=== PATIENT | male | born 1930 | race Caucasian/White ===

== ENCOUNTER 2016-12-12 13:41 | Inpatient (IN) | payer OTHER ==
--- NOTE | 2016-12-12 14:44 | DR.GENAD ---
HPI - PCP Primary Care Physician: NFD - Complaint/Symptoms Chief Complaint Doctors Comments: Patient has been without medical care for extended period of times according the neighbors. He lives alone. Chief Complaint:: PATIENT FELL DURING THE NIGHT AND HAS BRUISING AND SKIN TEARS TO HIS BACK. PATIENT ABDOMEN IS DISTENDED AND PAINFUL. - Source History Provided: Patient, Friend - Mode of Arrival Mode of Arrival: Wheelchair - Timing Onset of Chief Complaint: 12/11/16 PMH - PMH Past Medical History: No Past Surgical History: No Surgical History: Unknown - Family History History of Family Medical Conditions: No - Social History Does patient currently use any type of tobacco product: Yes Have you used tobacco products in the last 12 months: Yes Type of Tobacco Use: Cigarettes Does any household member use tobacco: No Alcohol Use: None Do you use any recreational Drugs:: No Lives With: Family Lives Where: Home - infectious screening In the last 2 months have you had wt loss of >10#?: NO Have you had fever, night sweats or hemotysis?: No Have you traveled outside the country in the last 6 months?: No Isolation: Standard ROS - Review of Systems Eyes: No Symptoms Reported ENTM: No Symptoms Reported Respiratoy: No Symptoms Reported Cardiovascular: No Symptoms Reported Gastrointestinal/Abdominal: No Symptoms Reported Genitourinary: No Symptoms Reported Neurological: No Symptoms Reported Musculoskeletal: Rib(s), Back, Elbow (A) Integumentary: No Symptoms Reported Hematologic/Lymphatic: No Symptoms Reported Endocrine: No Symptoms Reported Psychiatric: No Symptoms Reported All Other Systems: Reviewed and Negative PE - Vital Signs Vitals: Temperature 98.2 F Pulse Rate 69 Respiratory Rate 20 Blood Pressure 91/62 O2 Sat by Pulse Oximetry 97 - General Limitations: No Limitations General Appearance: Alert, In No Apparent Distress - Head Head Exam: Normal Inspection, Atraumatic - Eyes Eye exam: Normal Appearance, PERRL, EOMI - ENT ENT Exam: Normal Exam External Ear Exam: Normal External Inspection TM/Canal Exam: Bilateral Normal Nose Exam: Normal Nose Exam Mouth Exam: Normal Inspection Throat Exam: Normal Inspection - Neck Neck Exam: Normal Inspection - Chest Chest Inspection: Normal Inspection - Respiratory Respiratory Exam: Normal Lung Sounds Bilat Respiratory Exam: Bilateral Clear to Auscultation - Cardiovascular Cardiovascular Exam: Regular Rate - Abdominal Exam Abdominal Exam: Normal Inspection Abdominal Tenderness: Diffuse - Extremities Extremities Exam: Other (multiple abrasion lower extremities) - Back Back Exam: Normal Inspection - Neurologic Neurological Exam: Alert, Oriented X3, CN II-XII Intact - Skin Skin Exam: Warm, Dry Course - Reevaluation 1st: Improved - Consultation Called: 17:00 (Admit for further evaluation and treatment) ROR - Labs Reviewed Result Diagrams: 12/12/16 14:45 12/12/16 14:45 Laboratory: WBC 6.5 X10^3/uL (3.6-10.0) 12/12/16 14:45 RBC 3.83 X10^6/uL (4.7-6.0) L 12/12/16 14:45 Hgb 11.0 g/dL (13.5-18.0) L 12/12/16 14:45 Hct 33.5 % (42.0-54.0) L 12/12/16 14:45 MCV 87.4 fL (80.0-100.0) 12/12/16 14:45 MCH 28.7 pg (27.0-34.0) 12/12/16 14:45 MCHC 32.8 g/dL (33.0-35.0) L 12/12/16 14:45 RDW 16.4 % (11.6-16.5) 12/12/16 14:45 Plt Count 160 X10^3/uL (150.0-450.0) 12/12/16 14:45 Plt Count Comment Adequate (ADEQUATE) 12/12/16 14:45 MPV 8.7 fL (7.4-11.0) 12/12/16 14:45 Neut % 92.8 % (42.0-75.0) H 12/12/16 14:45 Lymph % 3.3 % (21.0-51.0) L 12/12/16 14:45 [place] % 3.7 % (0.0-13.0) 12/12/16 14:45 Eos % 0.0 % (0.9-2.9) L 12/12/16 14:45 Baso % 0.2 % (0.2-1.0) 12/12/16 14:45 Neut # 6.1 x10^3/uL (2.2-4.8) H 12/12/16 14:45 Lymph # 0.2 X10^3/uL (1.3-2.9) L 12/12/16 14:45 [place] # 0.2 x10^3/uL (0.3-0.8) L 12/12/16 14:45 Eos # 0.0 x10^3/uL (0.0-0.2) 12/12/16 14:45 Baso # 0.0 X10^3/uL (0.0-0.1) 12/12/16 14:45 Absolute Nucleated RBC 0.0 /100WBC 12/12/16 14:45 Total Counted 100 12/12/16 14:45 Neutrophils % (Manual) 93 % (39-76) H 12/12/16 14:45 Band Neutrophils % 4 % (0-10) 12/12/16 14:45 Lymphocytes % (Manual) 2 % (13-43) L 12/12/16 14:45 Monocytes % (Manual) 1 % (4-9) L 12/12/16 14:45 Plt Morphology Comment Normal (NORMAL) 12/12/16 14:45 RBC Morphology Normal (NORMAL) 12/12/16 14:45 INR Target Range - 12/12/16 14:45 INR 1.23 (0.8-1.3) 12/12/16 14:45 Sodium 135 mmol/L (136-145) L 12/12/16 14:45 Corrected Sodium TNP 12/12/16 14:45 Potassium 5.2 mmol/L (3.5-5.1) H 12/12/16 14:45 Chloride 100 mmol/L (98-107) 12/12/16 14:45 Carbon Dioxide 21.1 mmol/L (21-32) 12/12/16 14:45 BUN 91 mg/dL (7-18) H 12/12/16 14:45 Creatinine 4.86 mg/dL (0.70-1.30) H 12/12/16 14:45 Est GFR (MDRD) Af Amer 15 (>60) L 12/12/16 14:45 Est GFR (MDRD) Non-Af 12 (>60) L 12/12/16 14:45 Glucose 79 mg/dL (65-99) 12/12/16 14:45 Calcium 8.2 mg/dL (8.5-10.1) L 12/12/16 14:45 Corrected Calcium 9.5 mg/dL (8.5-10.1) 12/12/16 14:45 Total Bilirubin 0.90 mg/dL (0.2-1.0) 12/12/16 14:45 AST 33 Units/L (15-37) 12/12/16 14:45 ALT 31 Units/L (12-78) 12/12/16 14:45 Alkaline Phosphatase 75 Units/L (46-116) 12/12/16 14:45 Creatine Kinase 314 Units/L (39-308) H 12/12/16 14:45 CK-MB (CK-2) 14.5 ng/mL (0-4.0) H* 12/12/16 14:45 CK/CKMB % Calc 4.6 % (<4) 12/12/16 14:45 Troponin I 0.22 ng/mL (0-1.5) 12/12/16 14:45 C-Reactive Protein 46.60 mg/L (0-3.0) H 12/12/16 14:45 Total Protein 6.0 g/dL (6.4-8.2) L 12/12/16 14:45 Albumin 2.4 g/dL (3.4-5.0) L 12/12/16 14:45 Globulin 3.6 g/dL (2.5-4.5) 12/12/16 14:45 Albumin/Globulin Ratio 0.7 Ratio (1.1-2.1) L 12/12/16 14:45 - XRAY XRAY Interpreted by: Radiologist (Shoulder (L) Marked superior humeral migration consistent with chronic rotator cuff disease;Right shoulder: Superior humeral migrartion c/w chronic rotator cuff disease, Marked AC joint degenerative joint disease; Left Rib series: intact; CT Abd/Pel w/o con.: Massive dilation of the urinary bladder and chronic, severe bilateral hydronephrosis/hydroureter likely secondary to chronic bladder outlet obstruction from enlarged prostate gland. Large right and small left plleural effusion.) - Diagnosis Discharge Problem: Bladder outlet obstruction, Prostate hypertrophy - Discharge Plan Condition: Stable - Follow ups/Referrals Follow ups/Referrals: NFD,None [Primary Care Provider] - 3 days - Instructions
[2016-12-12 15:00] LABS: BASOPHILS % (AUTO) 0.2 % (0.2-1.0); HEMATOCRIT 33.5 % (42.0-54.0); LYMPHOCYTES # (AUTO) 0.2 X10^3/uL (1.3-2.9); LYMPHOCYTES % (AUTO) 3.3 % (21.0-51.0); MEAN CORPUSCULAR HEMOGLOBIN 28.7 pg (27.0-34.0); MEAN CORPUSCULAR HGB CONC 32.8 g/dL (33.0-35.0); MEAN CORPUSCULAR VOLUME 87.4 fL (80.0-100.0); MEAN PLATELET VOLUME 8.7 fL (7.4-11.0); MONOCYTES # (AUTO) 0.2 x10^3/uL (0.3-0.8); MONOCYTES % (AUTO) 3.7 % (0.0-13.0); NEUTROPHILS # (AUTO) 6.1 x10^3/uL (2.2-4.8); NEUTROPHILS % (AUTO) 92.8 % (42.0-75.0); PLATELET COUNT 160 X10^3/uL (150.0-450.0); RED BLOOD COUNT 3.83 X10^6/uL (4.7-6.0); RED CELL DISTRIBUTION WIDTH 16.4 % (11.6-16.5); WHITE BLOOD COUNT 6.5 X10^3/uL (3.6-10.0)
[2016-12-12 15:16] LABS: BLOOD UREA NITROGEN 91 mg/dL (7-18); CALCIUM 8.2 mg/dL (8.5-10.1); CARBON DIOXIDE 21.1 mmol/L (21-32); CHLORIDE 100 mmol/L (98-107); CREATININE 4.86 mg/dL (0.70-1.30); GLUCOSE 79 mg/dL (65-99); SODIUM 135 mmol/L (136-145); TROPONIN I 0.22 ng/mL (0-1.5); eGFR BLACK RACES 15 (>60); eGFR NON BLACK RACES 12 (>60)
[2016-12-12 15:22] LABS: BAND NEUTROPHILS % 4 % (0-10); PLATELET MORPHOLOGY COMMENT NORMAL (NORMAL)
--- NOTE | 2016-12-12 15:34 | RAD ---
HISTORY: Injury, fall, pain and decreased range of motion Study: Right shoulder to view Comparison: None Findings: The visualize clavicle is intact. Marked AC joint degenerative joint disease is present. The right u pper ribs and scapula are intact as is the proximal humerus. There is marked superior humeral migrat ion consistent with chronic rotator cuff disease. IMPRESSION: No definite acute traumatic abnormality Superior humeral migration consistent with chronic rotator cuff disease Marked AC joint degenerative joint disease Reported By:
--- NOTE | 2016-12-12 15:36 | RAD ---
HISTORY: Injury, fall, left shoulder pain and decreased range of motion Study: Left shoulder two view Comparison: None Findings: The clavicle and AC joints are intact. The scapula is intact as are the left upper ribs. The proxima l humerus is intact. There is marked superior humeral migration consistent with chronic rotator cuff disease. IMPRESSION: Marked superior humeral migration consistent with chronic rotator cuff disease Reported By:
[2016-12-12 15:38] LABS: ALANINE AMINOTRANSFERASE 31 Units/L (12-78); ALBUMIN 2.4 g/dL (3.4-5.0); ALKALINE PHOSPHATASE 75 Units/L (46-116); ASPARTATE AMINO TRANSFERASE 33 Units/L (15-37); CKMB % 4.6 % (<4); COR CA(FOR HYPOALB) 9.5 mg/dL (8.5-10.1); CREATINE KINASE 314 Units/L (39-308)
[2016-12-12 15:40] LABS: CREATINE KINASE MB 14.5 ng/mL (0-4.0)
--- NOTE | 2016-12-12 15:44 | RAD ---
HISTORY: Injury, fall, left posterior rib pain and bruising Study: Left ribs four view Comparison: None Findings: Examination of the left ribs demonstrated no definite evidence for fracture, lytic, or blastic lesio n. No pneumothorax or pleural effusion is identified. IMPRESSION: intact left ribs Reported By:
[2016-12-12] MEDS ORDERED: LR 1000 ML IV 1,000 ML IV SCH (16:00)
[2016-12-12] MEDS ORDERED: MORPHINE SULFATE INJ 4 MG IVP ONE (16:12)
--- NOTE | 2016-12-12 16:13 | CT ---
CT OF THE CHEST, ABDOMEN AND PELVIS WITHOUT IV CONTRAST HISTORY: Shortness of breath and abdominal distention Comparison: None Technique: Non contrast axial images of the chest, abdomen, and pelvis were obtained from the thorac ic inlet to the pubic symphysis. Dose reduction techniques including Automated Exposure Control (AEC ) and adjustment of mA and kV were utlized. Findings: The sensitivity for focal lesion detection within the solid abdominal viscera, and medias tinum is diminished without the use of IV contrast. CT chest without contrast: The cardiomegaly. No pericardial effusion. Three-vessel and valvular calc ification. No suspicious mediastinal or axillary lymph nodes. No focal consolidations, pleural effusions or pneumothorax. Airways are patent. No suspicious pulmon abimbola nodules or masses. CT abdomen and pelvis without contrast : Liver and spleen are normal in size and contour. No focal l esions. No ductal dilitation. Gallbladder is present. No calcified gallstones or gallbladder wall th ickening. The pancreas is unremarkable. Adrenal glands are normal. Kidneys are without hydronephrosi s or nephrolithiasis. No bowel obstruction or inflammation. No abnormal appearing mesenteric or retroperitoneal lymph nod es. No free fluid or fluid collections. The bladder is massively dilated. Prostate measures 5.5 cm. Small amount of free fluid in the pelvis . No aggressive osseous lesions. IMPRESSION: 1. Massive dilation of the urinary bladder and chronic, severe bilateral hydronephrosis/hydroureter likely secondary to chronic bladder outlet obstruction from enlarged prostate gland. 2. Large right and small left pleural effusions. 3. Severe Coronary and valvular calcification. 4. Severe emphysema. Reported By:
[2016-12-12] MEDS ORDERED: MORPHINE SULFATE INJ 4 MG ONE (16:14)
[2016-12-12 17:24] LABS: BILIRUBIN,URINE NEGATIVE (NEGATIVE); BLOOD/HEMOGLOBIN,URINE 5+ (NEGATIVE); GLUCOSE, URINE NEGATIVE (NEGATIVE); KETONES,URINE NEGATIVE (NEGATIVE); LEUKOCYTE ESTERASE ,URINE 3+ (NEGATIVE); NITRITES,URINE NEGATIVE (NEGATIVE); PH,URINE 6.5 (5.0 - 8.0); PROTEIN,URINE 2+ (NEGATIVE); UROBILINOGEN,URINE NORMAL (NORMAL)
[2016-12-12] MEDS ORDERED: ZOFRAN INJ 4 MG VIAL IVP PRN (17:35)
[2016-12-12 17:40] LABS: AMORPHOUS SEDIMENT,UR TRACE /HPF (NEGATIVE); APPEARANCE,URINE CLOUDY (CLEAR); BACTERIA,URINE 2+ /HPF (NEGATIVE); COLOR,URINE DARK YELLOW (YELLOW); RBC,URINE TNTC /HPF (NEGATIVE); SQUAMOUS EPITHELIAL CELL,UR RARE /HPF (NEGATIVE)
[2016-12-12] MEDS ORDERED: GEODON INJ IM ONE ×2 (18:26→18:27)
[2016-12-12] MEDS ORDERED: CIPRO IV 400 MG PREMIX* 400 MG/200 ML IV.SOLN. IV SCH (19:00)
[2016-12-12] MEDS: MORPHINE SULFATE INJ 4 MG IVP PRN (19:30)
[2016-12-12] MEDS: NS 1000 ML 1,000 ML IV SCH (21:37)
[2016-12-12] MEDS: ROCEPHIN VIAL 1 GM 1 GM in NS 50 ML IV + SPIKE MINIBAG* 50 ML IV SCH (21:37)
[2016-12-13] MEDS: DUONEB 0.5 MG/3 MG NEB SCH ×5 (01:20→23:05)
[2016-12-13] MEDS: MORPHINE SULFATE INJ 4 MG IVP PRN ×4 (06:04→23:43)
--- NOTE | 2016-12-13 06:16 | RAD ---
HISTORY: Follow up pleural effusion Study: Chest one view Comparison: December 12, 2016 plain film and chest CT Findings: The heart is enlarged. No definite congestive heart failure is noted. The lungs are well inflated. I nterstitial lung changes are present bilaterally. No acute alveolar infiltrates are identified. Hazi ness in the right reynold thorax is due to the patient's right pleural effusion which appears increased since prior examination. The patient's left pleural effusion is unchanged. The bony thorax is unrem arkable. IMPRESSION: Cardiomegaly without congestive heart failure Increasing right pleural effusion No change left pleural effusion Interstitial lung changes Reported By:
[2016-12-13] MEDS: NS 1000 ML 1,000 ML IV SCH ×2 (06:41→15:54)
[2016-12-13 06:53] LABS: ALANINE AMINOTRANSFERASE 29 Units/L (12-78); ALBUMIN 2.2 g/dL (3.4-5.0); ALKALINE PHOSPHATASE 68 Units/L (46-116); ASPARTATE AMINO TRANSFERASE 34 Units/L (15-37); BLOOD UREA NITROGEN 87 mg/dL (7-18); CALCIUM 8.2 mg/dL (8.5-10.1); CARBON DIOXIDE 21.8 mmol/L (21-32); CHLORIDE 104 mmol/L (98-107); COR CA(FOR HYPOALB) 9.6 mg/dL (8.5-10.1); CREATININE 4.27 mg/dL (0.70-1.30); GLUCOSE 60 mg/dL (65-99); SODIUM 138 mmol/L (136-145); TOTAL PROTEIN 5.7 g/dL (6.4-8.2); eGFR BLACK RACES 17 (>60); eGFR NON BLACK RACES 14 (>60)
[2016-12-13 07:09] LABS: BASOPHILS % (AUTO) 0 % (0.2-1.0); HEMATOCRIT 32.3 % (42.0-54.0); HEMOGLOBIN 10.5 g/dL (13.5-18.0); LYMPHOCYTES # (AUTO) 0.3 X10^3/uL (1.3-2.9); LYMPHOCYTES % (AUTO) 4.5 % (21.0-51.0); MEAN CORPUSCULAR HEMOGLOBIN 28.3 pg (27.0-34.0); MEAN CORPUSCULAR HGB CONC 32.6 g/dL (33.0-35.0); MEAN CORPUSCULAR VOLUME 86.9 fL (80.0-100.0); MEAN PLATELET VOLUME 9.4 fL (7.4-11.0); MONOCYTES # (AUTO) 0.2 x10^3/uL (0.3-0.8); MONOCYTES % (AUTO) 2.8 % (0.0-13.0); NEUTROPHILS # (AUTO) 7.1 x10^3/uL (2.2-4.8); NEUTROPHILS % (AUTO) 92.7 % (42.0-75.0); PLATELET COUNT 120 X10^3/uL (150.0-450.0); RED BLOOD COUNT 3.71 X10^6/uL (4.7-6.0); RED CELL DISTRIBUTION WIDTH 16.4 % (11.6-16.5); WHITE BLOOD COUNT 7.7 X10^3/uL (3.6-10.0)
[2016-12-13 08:08] LABS: BAND NEUTROPHILS % 14 % (0-10)
[2016-12-13 08:09] LABS: PLATELET MORPHOLOGY COMMENT NORMAL (NORMAL)
[2016-12-13] MEDS: CIPRO IV 200 MG PREMIX* 200 MG/100 ML BAG IV SCH ×2 (08:58→20:46)
[2016-12-13] MEDS: ROCEPHIN VIAL 1 GM 1 GM in NS 50 ML IV + SPIKE MINIBAG* 50 ML IV SCH (08:59)
--- NOTE | 2016-12-13 11:08 | CT ---
HISTORY: Fall, head injury Study: CT brain without contrast Comparison: None Technique: Multiple axial images of the brain were obtained from the skull base to the vertex without administr ation of IV contrast. Coronal and sagittal reformats were performed. Dose reduction proceed were use d with MA/kv adjusted for body size. Findings: No acute intraparenchymal hemorrhage or mass can be identified. No extra-axial fluid collections ar e seen. No alteration in the attenuation of the brain parenchyma can be identified to suggest acute or subacute ischemic change. the ventricles, cortical sulci, and other CSF spaces are enlarged con sistent with generalized atrophy. There is decreased attenuation in the periventricular white matter suggestive of small vessel vascular disease. The extracranial structures are grossly unremarkable. IMPRESSION: 1. No acute intracranial process can be identified. 2. Atrophy 3. Small-vessel disease Reported By:
[2016-12-13] MEDS ORDERED: HALDOL INJ IM ONE ×2 (15:38→16:36)
[2016-12-14] MEDS: NS 1000 ML 1,000 ML IV SCH ×2 (02:00→22:13)
[2016-12-14] MEDS: HALDOL INJ IM PRN ×3 (02:14→22:09)
[2016-12-14] MEDS: MORPHINE SULFATE INJ 4 MG IVP PRN ×4 (03:40→20:51)
[2016-12-14] MEDS: DILAUDID INJ IVP PRN ×3 (05:00→17:55)
[2016-12-14] MEDS: DUONEB 0.5 MG/3 MG NEB SCH ×4 (05:57→23:21)
[2016-12-14] MEDS: CIPRO IV 200 MG PREMIX* 200 MG/100 ML BAG IV SCH ×2 (09:13→20:48)
[2016-12-14] MEDS: ROCEPHIN VIAL 1 GM 1 GM in NS 50 ML IV + SPIKE MINIBAG* 50 ML IV SCH (09:13)
[2016-12-14 09:25] VITALS: BMI 18.3
[2016-12-14 13:55] LABS: BASOPHILS % (AUTO) 0.1 % (0.2-1.0); HEMATOCRIT 31.6 % (42.0-54.0); HEMOGLOBIN 10.2 g/dL (13.5-18.0); LYMPHOCYTES # (AUTO) 0.2 X10^3/uL (1.3-2.9); LYMPHOCYTES % (AUTO) 2.8 % (21.0-51.0); MEAN CORPUSCULAR HEMOGLOBIN 28.5 pg (27.0-34.0); MEAN CORPUSCULAR HGB CONC 32.4 g/dL (33.0-35.0); MEAN CORPUSCULAR VOLUME 87.8 fL (80.0-100.0); MEAN PLATELET VOLUME 9.3 fL (7.4-11.0); MONOCYTES # (AUTO) 0.3 x10^3/uL (0.3-0.8); MONOCYTES % (AUTO) 3.7 % (0.0-13.0); NEUTROPHILS # (AUTO) 7.1 x10^3/uL (2.2-4.8); NEUTROPHILS % (AUTO) 93.4 % (42.0-75.0); PLATELET COUNT 134 X10^3/uL (150.0-450.0); RED CELL DISTRIBUTION WIDTH 16.7 % (11.6-16.5); WHITE BLOOD COUNT 7.6 X10^3/uL (3.6-10.0)
[2016-12-14 13:57] LABS: AMMONIA 15 umol/L (11-32)
[2016-12-14 14:02] LABS: ALANINE AMINOTRANSFERASE 29 Units/L (12-78); ALKALINE PHOSPHATASE 71 Units/L (46-116); ASPARTATE AMINO TRANSFERASE 44 Units/L (15-37); BLOOD UREA NITROGEN 78 mg/dL (7-18); CALCIUM 8.5 mg/dL (8.5-10.1); CARBON DIOXIDE 19.9 mmol/L (21-32); CHLORIDE 110 mmol/L (98-107); COR CA(FOR HYPOALB) 10.1 mg/dL (8.5-10.1); CREATININE 3.24 mg/dL (0.70-1.30); GLUCOSE 65 mg/dL (65-99); SODIUM 144 mmol/L (136-145); TOTAL PROTEIN 5.9 g/dL (6.4-8.2); eGFR BLACK RACES 23 (>60); eGFR NON BLACK RACES 19 (>60)
[2016-12-14 14:21] LABS: BAND NEUTROPHILS % 2 % (0-10); PLATELET MORPHOLOGY COMMENT NORMAL (NORMAL)
[2016-12-15] MEDS: DILAUDID INJ IVP PRN ×2 (00:21→15:44)
[2016-12-15] MEDS: MORPHINE SULFATE INJ 4 MG IVP PRN ×3 (02:23→12:22)
[2016-12-15] MEDS: HALDOL INJ IM PRN ×3 (03:52→21:10)
[2016-12-15] MEDS: DUONEB 0.5 MG/3 MG NEB SCH ×4 (05:54→18:17)
[2016-12-15 06:29] LABS: BASOPHILS % (AUTO) 0.3 % (0.2-1.0); LYMPHOCYTES # (AUTO) 0.2 X10^3/uL (1.3-2.9); LYMPHOCYTES % (AUTO) 2.7 % (21.0-51.0); MEAN CORPUSCULAR HEMOGLOBIN 28.5 pg (27.0-34.0); MEAN CORPUSCULAR HGB CONC 32.2 g/dL (33.0-35.0); MEAN CORPUSCULAR VOLUME 88.4 fL (80.0-100.0); MONOCYTES # (AUTO) 0.4 x10^3/uL (0.3-0.8); MONOCYTES % (AUTO) 4.4 % (0.0-13.0); NEUTROPHILS # (AUTO) 7.5 x10^3/uL (2.2-4.8); NEUTROPHILS % (AUTO) 92.6 % (42.0-75.0); PLATELET COUNT 132 X10^3/uL (150.0-450.0); RED BLOOD COUNT 3.85 X10^6/uL (4.7-6.0); RED CELL DISTRIBUTION WIDTH 16.8 % (11.6-16.5); WHITE BLOOD COUNT 8.1 X10^3/uL (3.6-10.0)
[2016-12-15 06:37] LABS: ALANINE AMINOTRANSFERASE 31 Units/L (12-78); ALBUMIN 2.1 g/dL (3.4-5.0); ALKALINE PHOSPHATASE 74 Units/L (46-116); ASPARTATE AMINO TRANSFERASE 61 Units/L (15-37); BLOOD UREA NITROGEN 86 mg/dL (7-18); CALCIUM 8.7 mg/dL (8.5-10.1); CARBON DIOXIDE 18.6 mmol/L (21-32); CHLORIDE 112 mmol/L (98-107); COR CA(FOR HYPOALB) 10.2 mg/dL (8.5-10.1); CREATININE 3.24 mg/dL (0.70-1.30); GLUCOSE 67 mg/dL (65-99); SODIUM 148 mmol/L (136-145); eGFR BLACK RACES 23 (>60); eGFR NON BLACK RACES 19 (>60)
[2016-12-15 07:44] LABS: BAND NEUTROPHILS % 3 % (0-10)
[2016-12-15 07:45] LABS: ANISOCYTOSIS TRACE; PLATELET MORPHOLOGY COMMENT NORMAL (NORMAL)
[2016-12-15] MEDS: ROCEPHIN VIAL 1 GM 1 GM in NS 50 ML IV + SPIKE MINIBAG* 50 ML IV SCH (10:15)
[2016-12-15] MEDS: CIPRO IV 200 MG PREMIX* 200 MG/100 ML BAG IV SCH ×2 (10:15→21:09)
[2016-12-15] MEDS ORDERED: BENADRYL INJ 50 MG VIAL IVP ONE (14:23)
--- NOTE | 2016-12-15 16:13 | RAD ---
HISTORY: Shortness of breath Study: Single view of the chest. Comparison: None. Findings: 12/13/2016 cardiomegaly. Essentially unchanged appearance of diffuse interstitial and early alveolar airspace opacities. No dense consolidations. Probable trace right pleural effusion. Osseous structur es demonstrate no acute abnormality. IMPRESSION: 1. No change in appearance of bilateral interstitial and early alveolar opacities with possible rig ht pleural effusion and cardiomegaly. Findings would most consistent with pulmonary edema although s hould be stated that multifocal infection or ARDS could have a similar appearance. Reported By:
[2016-12-15] MEDS ORDERED: LASIX IVP ONE (17:08)
[2016-12-15] MEDS ORDERED: NS 1/2 1000 ML IV 1,000 ML IV ONE (17:16)
[2016-12-15] MEDS: NS 1/2 1000 ML IV 1,000 ML IV SCH (17:22)
[2016-12-15] MEDS ORDERED: PHARMACY CONSULT - DOSE _____ XX SCH (18:00)
[2016-12-16] MEDS: DILAUDID INJ IVP PRN ×2 (00:57→23:36)
[2016-12-16] MEDS: DUONEB 0.5 MG/3 MG NEB SCH ×4 (01:29→16:18)
[2016-12-16 05:23] LABS: BASOPHILS % (AUTO) 0.2 % (0.2-1.0); HEMATOCRIT 35.1 % (42.0-54.0); HEMOGLOBIN 11.3 g/dL (13.5-18.0); LYMPHOCYTES # (AUTO) 0.3 X10^3/uL (1.3-2.9); LYMPHOCYTES % (AUTO) 3.4 % (21.0-51.0); MEAN CORPUSCULAR HEMOGLOBIN 28.3 pg (27.0-34.0); MEAN CORPUSCULAR HGB CONC 32.3 g/dL (33.0-35.0); MEAN CORPUSCULAR VOLUME 87.4 fL (80.0-100.0); MEAN PLATELET VOLUME 9.1 fL (7.4-11.0); MONOCYTES # (AUTO) 0.3 x10^3/uL (0.3-0.8); NEUTROPHILS % (AUTO) 92.4 % (42.0-75.0); PLATELET COUNT 124 X10^3/uL (150.0-450.0); RED BLOOD COUNT 4.01 X10^6/uL (4.7-6.0); RED CELL DISTRIBUTION WIDTH 16.4 % (11.6-16.5); WHITE BLOOD COUNT 7.6 X10^3/uL (3.6-10.0)
[2016-12-16] MEDS ORDERED: NS 1/2 1000 ML IV 1,000 ML IV ONE (05:23)
[2016-12-16] MEDS: MORPHINE SULFATE INJ 4 MG IVP PRN ×3 (05:30→21:21)
[2016-12-16] MEDS: NS 1/2 1000 ML IV 1,000 ML IV SCH (05:30)
[2016-12-16 05:32] LABS: ALANINE AMINOTRANSFERASE 40 Units/L (12-78); ALBUMIN 2.1 g/dL (3.4-5.0); ALKALINE PHOSPHATASE 69 Units/L (46-116); ASPARTATE AMINO TRANSFERASE 81 Units/L (15-37); BLOOD UREA NITROGEN 91 mg/dL (7-18); CALCIUM 8.6 mg/dL (8.5-10.1); CARBON DIOXIDE 18.9 mmol/L (21-32); CHLORIDE 114 mmol/L (98-107); COR CA(FOR HYPOALB) 10.1 mg/dL (8.5-10.1); CREATININE 3.15 mg/dL (0.70-1.30); GLUCOSE 82 mg/dL (65-99); eGFR BLACK RACES 24 (>60); eGFR NON BLACK RACES 20 (>60)
[2016-12-16 05:55] LABS: SODIUM 151 mmol/L (136-145)
[2016-12-16 06:45] LABS: PLATELET MORPHOLOGY COMMENT NORMAL (NORMAL)
[2016-12-16] MEDS: ROCEPHIN VIAL 1 GM 1 GM in NS 50 ML IV + SPIKE MINIBAG* 50 ML IV SCH (08:26)
[2016-12-16] MEDS: CIPRO IV 200 MG PREMIX* 200 MG/100 ML BAG IV SCH ×2 (08:26→21:28)
[2016-12-16] MEDS ORDERED: HumuLIN R SUBCUT PRN (09:04)
[2016-12-16] MEDS: CLINIMIX 4.25 %/10 % 1,000 ML with MVI INJ (ADULT) 10 ML, TRACE ELEMENTS INJ 10 ML, POT... IV SCH ×4 (11:04)
--- NOTE | 2016-12-16 11:21 | RAD ---
History: Bilateral Rales Study: AP chest Comparison: Yesterday Findings: There is cardiomegaly with severe pulmonary edema and a small pleural effusion bilaterally and vascular congestion. Impression: Congestive heart failure, worse than on December 13 Reported By:
--- NOTE | 2016-12-16 14:09 | PCM.PROG ---
Progress Note - Progress Note for Day of Date: 12/16/16 - Subjective Subjective: 86 WM WITH AMS, OPENS EYE TO TACTILE SITMULI, NO VERBAL RESPONES, CAREGIVER, POWER OF ATTOURNEY IN ROOM WITH PT. PT HAS DNR SIGNED. DISCUSSED HOSPICE WITH CAREGIVER. PLAN TO CONTINUE CURRENT MEDS AND CONSULT [facility]. - Past Medical Family Social History Past Med/Fam/Surg Hx: No changes since H&P Allergies: Allergies No Known Drug Allergy Allergy (Verified 12/12/16 13:42) - Review of Systems ROS: No change since H&P - Vital Signs and I&O's Vital Signs: Temperature 98 F Pulse Rate [Right Brachial] 84 Pulse Rate [Left Brachial] 71 Pulse Rate 86 Respiratory Rate 24 Blood Pressure [Right Arm] 116/56 Blood Pressure [Right Calf] 133/69 O2 Sat by Pulse Oximetry 86 Intake and Output: Intake & Output 12/14/16 12/15/16 12/16/16 12/17/16 11:59 11:59 11:59 11:59 Intake Total 9178 783 2392 Output Total 1775 1000 880 Balance -471 -40 190 - Physical Exam Oriented: Unable to test Eyes: Normal Ear: Normal Throat: Dry Respiratory: Diminished Cardiovascular: Tachycardia : Other (incontinent) Auscultation: Bowel Sounds: Normal Palpation: Normal Tenderness: Other (UNABLE TO TEST) Skin: Decreased Turgur, Ecchymosis Musculoskeletal: Motor Deficit (DIFFUSE WEAKNESS) Psychiatric: Other (unresponsive) Speech Pattern: Unclear, Aphasic - Laboratory and Diagnostics Result Diagrams: 12/16/16 03:41 12/16/16 03:41 Labs: 12/16/16 11:05 Sputum - Expectorated Sputum - Final Laboratory WBC 7.6 X10^3/uL (3.6-10.0) 12/16/16 03:41 RBC 4.01 X10^6/uL (4.7-6.0) L 12/16/16 03:41 Hgb 11.3 g/dL (13.5-18.0) L 12/16/16 03:41 Hct 35.1 % (42.0-54.0) L 12/16/16 03:41 MCV 87.4 fL (80.0-100.0) 12/16/16 03:41 MCH 28.3 pg (27.0-34.0) 12/16/16 03:41 MCHC 32.3 g/dL (33.0-35.0) L 12/16/16 03:41 RDW 16.4 % (11.6-16.5) 12/16/16 03:41 Plt Count 124 X10^3/uL (150.0-450.0) L 12/16/16 03:41 Plt Count Comment Decreased (ADEQUATE) 12/16/16 03:41 MPV 9.1 fL (7.4-11.0) 12/16/16 03:41 Neut % 92.4 % (42.0-75.0) H 12/16/16 03:41 Lymph % 3.4 % (21.0-51.0) L 12/16/16 03:41 [place] % 4.0 % (0.0-13.0) 12/16/16 03:41 Eos % 0.0 % (0.9-2.9) L 12/16/16 03:41 Baso % 0.2 % (0.2-1.0) 12/16/16 03:41 Neut # 7.0 x10^3/uL (2.2-4.8) H 12/16/16 03:41 Lymph # 0.3 X10^3/uL (1.3-2.9) L 12/16/16 03:41 [place] # 0.3 x10^3/uL (0.3-0.8) 12/16/16 03:41 Eos # 0.0 x10^3/uL (0.0-0.2) 12/16/16 03:41 Baso # 0.0 X10^3/uL (0.0-0.1) 12/16/16 03:41 Absolute Nucleated RBC 0.0 /100WBC 12/16/16 03:41 Total Counted 100 12/16/16 03:41 Neutrophils % (Manual) 90 % (39-76) H 12/16/16 03:41 Band Neutrophils % 3 % (0-10) 12/15/16 05:15 Lymphocytes % (Manual) 8 % (13-43) L 12/16/16 03:41 Monocytes % (Manual) 2 % (4-9) L 12/16/16 03:41 Plt Morphology Comment Normal (NORMAL) 12/16/16 03:41 RBC Morphology Normal (NORMAL) 12/16/16 03:41 Anisocytosis Trace 12/15/16 05:15 INR Target Range - 12/12/16 14:45 INR 1.23 (0.8-1.3) 12/12/16 14:45 Sodium 151 mmol/L (136-145) H* 12/16/16 03:41 Corrected Sodium TNP 12/16/16 03:41 Potassium 3.9 mmol/L (3.5-5.1) 12/16/16 03:41 Chloride 114 mmol/L (98-107) H 12/16/16 03:41 Carbon Dioxide 18.9 mmol/L (21-32) L 12/16/16 03:41 BUN 91 mg/dL (7-18) H 12/16/16 03:41 Creatinine 3.15 mg/dL (0.70-1.30) H 12/16/16 03:41 Est GFR (MDRD) Af Amer 24 (>60) L 12/16/16 03:41 Est GFR (MDRD) Non-Af 20 (>60) L 12/16/16 03:41 Glucose 82 mg/dL (65-99) 12/16/16 03:41 Calcium 8.6 mg/dL (8.5-10.1) 12/16/16 03:41 Corrected Calcium 10.1 mg/dL (8.5-10.1) 12/16/16 03:41 Total Bilirubin 0.90 mg/dL (0.2-1.0) 12/16/16 03:41 AST 81 Units/L (15-37) H 12/16/16 03:41 ALT 40 Units/L (12-78) 12/16/16 03:41 Alkaline Phosphatase 69 Units/L (46-116) 12/16/16 03:41 Ammonia 15 umol/L (11-32) 12/14/16 13:30 Creatine Kinase 314 Units/L (39-308) H 12/12/16 14:45 CK-MB (CK-2) 14.5 ng/mL (0-4.0) H* 12/12/16 14:45 CK/CKMB % Calc 4.6 % (<4) 12/12/16 14:45 Troponin I 0.22 ng/mL (0-1.5) 12/12/16 14:45 C-Reactive Protein 46.60 mg/L (0-3.0) H 12/12/16 14:45 Total Protein 6.0 g/dL (6.4-8.2) L 12/16/16 03:41 Albumin 2.1 g/dL (3.4-5.0) L 12/16/16 03:41 Globulin 3.9 g/dL (2.5-4.5) 12/16/16 03:41 Albumin/Globulin Ratio 0.5 Ratio (1.1-2.1) L 12/16/16 03:41 Total PSA 16.15 ng/mL (0.13-4.0) H 12/16/16 03:41 Specimen Type Catherized urine 12/12/16 16:54 Urine Color Dark yellow (YELLOW) 12/12/16 16:54 Urine Appearance Cloudy (CLEAR) 12/12/16 16:54 Urine pH 6.5 (5.0 - 8.0) 12/12/16 16:54 Ur Specific [place] 1.010 (1.000-1.030) 12/12/16 16:54 Urine Protein 2+ (NEGATIVE) 12/12/16 16:54 Urine Glucose (UA) Negative (NEGATIVE) 12/12/16 16:54 Urine Ketones Negative (NEGATIVE) 12/12/16 16:54 Urine Occult Blood 5+ (NEGATIVE) 12/12/16 16:54 Urine Nitrite Negative (NEGATIVE) 12/12/16 16:54 Urine Bilirubin Negative (NEGATIVE) 12/12/16 16:54 Urine Urobilinogen Normal (NORMAL) 12/12/16 16:54 Ur Leukocyte Esterase 3+ (NEGATIVE) 12/12/16 16:54 Urine RBC Tntc /HPF (NEGATIVE) 12/12/16 16:54 Urine WBC 55-60 /HPF (NEGATIVE) 12/12/16 16:54 Ur Squamous Epith Cells Rare /HPF (NEGATIVE) 12/12/16 16:54 Amorphous Sediment Trace /HPF (NEGATIVE) 12/12/16 16:54 Urine Bacteria 2+ /HPF (NEGATIVE) 12/12/16 16:54 Ur Culture Indicated? Yes/culture set up 12/12/16 16:54 - Plan (1) Altered mental state Status: Acute Qualifiers: Altered mental status type: A Coma depth: C Coma timing: C Plan: continue current medication, supportive care. family/caregiver requesting hospice, pt is DNR, increased lethardy, ams. repeat am labs, bp and cardiac monitoring (2) Renal failure Status: Acute Qualifiers: Renal failure chronicity: R Acute renal failure type: A Chronic kidney disease stage: C Plan: iv hydration, gentle repeat am cmp (3) Prostate hypertrophy Status: Acute
[2016-12-16] MEDS: HALDOL INJ IM PRN (19:15)
[2016-12-17] MEDS: DUONEB 0.5 MG/3 MG NEB SCH ×4 (00:47→18:26)
[2016-12-17] MEDS: CLINIMIX 4.25 %/10 % 1,000 ML with MVI INJ (ADULT) 10 ML, TRACE ELEMENTS INJ 10 ML, POT... IV SCH ×12 (03:16→19:16)
[2016-12-17] MEDS: DILAUDID INJ IVP PRN ×4 (06:04→19:17)
[2016-12-17 06:13] LABS: BASOPHILS % (AUTO) 0.1 % (0.2-1.0); EOSINOPHILS % (AUTO) 0.1 % (0.9-2.9); HEMATOCRIT 34.3 % (42.0-54.0); HEMOGLOBIN 11.1 g/dL (13.5-18.0); LYMPHOCYTES # (AUTO) 0.4 X10^3/uL (1.3-2.9); LYMPHOCYTES % (AUTO) 5.1 % (21.0-51.0); MEAN CORPUSCULAR HEMOGLOBIN 28.4 pg (27.0-34.0); MEAN CORPUSCULAR HGB CONC 32.3 g/dL (33.0-35.0); MEAN CORPUSCULAR VOLUME 87.9 fL (80.0-100.0); MEAN PLATELET VOLUME 9.2 fL (7.4-11.0); MONOCYTES # (AUTO) 0.3 x10^3/uL (0.3-0.8); MONOCYTES % (AUTO) 3.4 % (0.0-13.0); NEUTROPHILS # (AUTO) 7.6 x10^3/uL (2.2-4.8); NEUTROPHILS % (AUTO) 91.3 % (42.0-75.0); PLATELET COUNT 104 X10^3/uL (150.0-450.0); RED CELL DISTRIBUTION WIDTH 16.8 % (11.6-16.5); WHITE BLOOD COUNT 8.3 X10^3/uL (3.6-10.0)
[2016-12-17 06:38] LABS: ALBUMIN 1.9 g/dL (3.4-5.0); CALCIUM 8.5 mg/dL (8.5-10.1); CARBON DIOXIDE 21.1 mmol/L (21-32); COR CA(FOR HYPOALB) 10.2 mg/dL (8.5-10.1); CREATININE 2.97 mg/dL (0.70-1.30); TOTAL PROTEIN 5.6 g/dL (6.4-8.2)
[2016-12-17 07:15] LABS: CRENATED RBC SLIGHT; PLATELET MORPHOLOGY COMMENT NORMAL (NORMAL)
[2016-12-17] MEDS: ROCEPHIN VIAL 1 GM 1 GM in NS 50 ML IV + SPIKE MINIBAG* 50 ML IV SCH (09:03)
[2016-12-17] MEDS: CIPRO IV 200 MG PREMIX* 200 MG/100 ML BAG IV SCH ×2 (09:47→22:20)
--- NOTE | 2016-12-17 13:48 | PCM.PROG ---
Progress Note - Progress Note for Day of Date: 12/17/16 - Subjective Subjective: 86 WM WITH AMS, OPENS EYE TO TACTILE SITMULI, NO VERBAL RESPONES, DIFFUSE MUSCLE WEAKNESS AND INCREASE CHEST CONGESTION. CAREGIVER, POWER OF ATTOURNEY IN ROOM WITH PT. PT HAS DNR SIGNED. DISCUSSED HOSPICE WITH CAREGIVER. PLAN TO CONTINUE CURRENT MEDS AND CONSULT [facility]. - Past Medical Family Social History Past Med/Fam/Surg Hx: No changes since H&P Allergies: Allergies No Known Drug Allergy Allergy (Verified 12/12/16 13:42) - Review of Systems ROS: No change since H&P - Vital Signs and I&O's Vital Signs: Temperature 97.7 F Pulse Rate [Right Brachial] 83 Pulse Rate [Left Brachial] 71 Pulse Rate 87 Respiratory Rate 19 Blood Pressure [Right Arm] 110/59 Blood Pressure [Right Calf] 133/69 O2 Sat by Pulse Oximetry 95 Intake and Output: Intake & Output 12/15/16 12/16/16 12/17/16 12/18/16 11:59 11:59 11:59 11:59 Intake Total 960 1070 600 Output Total 1000 880 950 Balance -40 190 -350 - Physical Exam Oriented: Unable to test Eyes: Normal Ear: Normal Throat: Dry Respiratory: Diminished, Rhonchi Cardiovascular: Tachycardia : Other (incontinent) Auscultation: Bowel Sounds: Normal Tenderness: Other (UNABLE TO TEST) Skin: Decreased Turgur, Ecchymosis Musculoskeletal: Motor Deficit (DIFFUSE WEAKNESS) Psychiatric: Other (unresponsive) Speech Pattern: Aphasic - Laboratory and Diagnostics Result Diagrams: 12/17/16 05:15 12/17/16 05:15 Labs: 12/16/16 11:05 Sputum - Expectorated Sputum Sputum Culture - Preliminary 12/16/16 11:05 Sputum - Expectorated Sputum - Final Laboratory WBC 8.3 X10^3/uL (3.6-10.0) 12/17/16 05:15 RBC 3.90 X10^6/uL (4.7-6.0) L 12/17/16 05:15 Hgb 11.1 g/dL (13.5-18.0) L 12/17/16 05:15 Hct 34.3 % (42.0-54.0) L 12/17/16 05:15 MCV 87.9 fL (80.0-100.0) 12/17/16 05:15 MCH 28.4 pg (27.0-34.0) 12/17/16 05:15 MCHC 32.3 g/dL (33.0-35.0) L 12/17/16 05:15 RDW 16.8 % (11.6-16.5) H 12/17/16 05:15 Plt Count 104 X10^3/uL (150.0-450.0) L 12/17/16 05:15 Plt Count Comment Decreased (ADEQUATE) 12/17/16 05:15 MPV 9.2 fL (7.4-11.0) 12/17/16 05:15 Neut % 91.3 % (42.0-75.0) H 12/17/16 05:15 Lymph % 5.1 % (21.0-51.0) L 12/17/16 05:15 [place] % 3.4 % (0.0-13.0) 12/17/16 05:15 Eos % 0.1 % (0.9-2.9) L 12/17/16 05:15 Baso % 0.1 % (0.2-1.0) L 12/17/16 05:15 Neut # 7.6 x10^3/uL (2.2-4.8) H 12/17/16 05:15 Lymph # 0.4 X10^3/uL (1.3-2.9) L 12/17/16 05:15 [place] # 0.3 x10^3/uL (0.3-0.8) 12/17/16 05:15 Eos # 0.0 x10^3/uL (0.0-0.2) 12/17/16 05:15 Baso # 0.0 X10^3/uL (0.0-0.1) 12/17/16 05:15 Absolute Nucleated RBC 0.2 /100WBC 12/17/16 05:15 Total Counted 100 12/17/16 05:15 Neutrophils % (Manual) 84 % (39-76) H 12/17/16 05:15 Band Neutrophils % 3 % (0-10) 12/15/16 05:15 Lymphocytes % (Manual) 13 % (13-43) 12/17/16 05:15 Monocytes % (Manual) 3 % (4-9) L 12/17/16 05:15 Plt Morphology Comment Normal (NORMAL) 12/17/16 05:15 RBC Morphology Abnormal (NORMAL) 12/17/16 05:15 Anisocytosis Trace 12/15/16 05:15 Crenated Cell Slight A 12/17/16 05:15 INR Target Range - 12/12/16 14:45 INR 1.23 (0.8-1.3) 12/12/16 14:45 Sodium 154 mmol/L (136-145) H* 12/17/16 05:15 Corrected Sodium 154 mmol/L (136-145) H 12/17/16 05:15 Potassium 3.6 mmol/L (3.5-5.1) 12/17/16 05:15 Chloride 119 mmol/L (98-107) H* 12/17/16 05:15 Carbon Dioxide 21.1 mmol/L (21-32) 12/17/16 05:15 BUN 98 mg/dL (7-18) H 12/17/16 05:15 Creatinine 2.97 mg/dL (0.70-1.30) H 12/17/16 05:15 Est GFR (MDRD) Af Amer 26 (>60) L 12/17/16 05:15 Est GFR (MDRD) Non-Af 21 (>60) L 12/17/16 05:15 Glucose 111 mg/dL (65-99) H 12/17/16 05:15 Calcium 8.5 mg/dL (8.5-10.1) 12/17/16 05:15 Corrected Calcium 10.2 mg/dL (8.5-10.1) H 12/17/16 05:15 Total Bilirubin 0.70 mg/dL (0.2-1.0) 12/17/16 05:15 AST 71 Units/L (15-37) H 12/17/16 05:15 ALT 43 Units/L (12-78) 12/17/16 05:15 Alkaline Phosphatase 66 Units/L (46-116) 12/17/16 05:15 Ammonia 15 umol/L (11-32) 12/14/16 13:30 Creatine Kinase 314 Units/L (39-308) H 12/12/16 14:45 CK-MB (CK-2) 14.5 ng/mL (0-4.0) H* 12/12/16 14:45 CK/CKMB % Calc 4.6 % (<4) 12/12/16 14:45 Troponin I 0.22 ng/mL (0-1.5) 12/12/16 14:45 C-Reactive Protein 46.60 mg/L (0-3.0) H 12/12/16 14:45 Total Protein 5.6 g/dL (6.4-8.2) L 12/17/16 05:15 Albumin 1.9 g/dL (3.4-5.0) L 12/17/16 05:15 Globulin 3.7 g/dL (2.5-4.5) 12/17/16 05:15 Albumin/Globulin Ratio 0.5 Ratio (1.1-2.1) L 12/17/16 05:15 Total PSA 16.15 ng/mL (0.13-4.0) H 12/16/16 03:41 Specimen Type Catherized urine 12/12/16 16:54 Urine Color Dark yellow (YELLOW) 12/12/16 16:54 Urine Appearance Cloudy (CLEAR) 12/12/16 16:54 Urine pH 6.5 (5.0 - 8.0) 12/12/16 16:54 Ur Specific [place] 1.010 (1.000-1.030) 12/12/16 16:54 Urine Protein 2+ (NEGATIVE) 12/12/16 16:54 Urine Glucose (UA) Negative (NEGATIVE) 12/12/16 16:54 Urine Ketones Negative (NEGATIVE) 12/12/16 16:54 Urine Occult Blood 5+ (NEGATIVE) 12/12/16 16:54 Urine Nitrite Negative (NEGATIVE) 12/12/16 16:54 Urine Bilirubin Negative (NEGATIVE) 12/12/16 16:54 Urine Urobilinogen Normal (NORMAL) 12/12/16 16:54 Ur Leukocyte Esterase 3+ (NEGATIVE) 12/12/16 16:54 Urine RBC Tntc /HPF (NEGATIVE) 12/12/16 16:54 Urine WBC 55-60 /HPF (NEGATIVE) 12/12/16 16:54 Ur Squamous Epith Cells Rare /HPF (NEGATIVE) 12/12/16 16:54 Amorphous Sediment Trace /HPF (NEGATIVE) 12/12/16 16:54 Urine Bacteria 2+ /HPF (NEGATIVE) 12/12/16 16:54 Ur Culture Indicated? Yes/culture set up 12/12/16 16:54 - Plan (1) Altered mental state Status: Acute Qualifiers: Altered mental status type: A Coma depth: C Coma timing: C Plan: continue current medication, supportive care. family/caregiver requesting hospice, pt is DNR, increased lethardy, ams. repeat am labs, bp and cardiac monitoring (2) Renal failure Status: Acute Qualifiers: Renal failure chronicity: R Acute renal failure type: A Chronic kidney disease stage: C Plan: iv hydration, gentle repeat am cmp (3) Prostate hypertrophy Status: Acute
[2016-12-17] MEDS: MORPHINE SULFATE INJ 4 MG IVP PRN (22:19)
[2016-12-18] MEDS: DUONEB 0.5 MG/3 MG NEB SCH ×4 (01:15→17:13)
[2016-12-18] MEDS: DILAUDID INJ IVP PRN ×4 (01:51→15:55)
[2016-12-18] MEDS: CLINIMIX 4.25 %/10 % 1,000 ML with MVI INJ (ADULT) 10 ML, TRACE ELEMENTS INJ 10 ML, POT... IV SCH ×4 (01:58)
[2016-12-18 06:19] LABS: BASOPHILS % (AUTO) 0 % (0.2-1.0); EOSINOPHILS % (AUTO) 0.1 % (0.9-2.9); HEMATOCRIT 34.1 % (42.0-54.0); LYMPHOCYTES # (AUTO) 0.4 X10^3/uL (1.3-2.9); LYMPHOCYTES % (AUTO) 3.4 % (21.0-51.0); MEAN CORPUSCULAR HEMOGLOBIN 28.2 pg (27.0-34.0); MEAN CORPUSCULAR HGB CONC 32.1 g/dL (33.0-35.0); MEAN CORPUSCULAR VOLUME 87.7 fL (80.0-100.0); MONOCYTES # (AUTO) 0.3 x10^3/uL (0.3-0.8); MONOCYTES % (AUTO) 2.9 % (0.0-13.0); NEUTROPHILS % (AUTO) 93.6 % (42.0-75.0); PLATELET COUNT 89 X10^3/uL (150.0-450.0); RED BLOOD COUNT 3.89 X10^6/uL (4.7-6.0); RED CELL DISTRIBUTION WIDTH 16.7 % (11.6-16.5); WHITE BLOOD COUNT 10.7 X10^3/uL (3.6-10.0)
[2016-12-18 06:37] LABS: ALBUMIN 1.9 g/dL (3.4-5.0); CALCIUM 8.3 mg/dL (8.5-10.1); CARBON DIOXIDE 24.5 mmol/L (21-32); CREATININE 2.7 mg/dL (0.70-1.30); TOTAL PROTEIN 5.6 g/dL (6.4-8.2)
[2016-12-18 08:00] LABS: PLATELET MORPHOLOGY COMMENT NORMAL (NORMAL)
[2016-12-18 08:01] LABS: CRENATED RBC SLIGHT
[2016-12-18] MEDS ORDERED: CLINIMIX 4.25 %/10 % 1,000 ML with MVI INJ (ADULT) 10 ML, TRACE ELEMENTS INJ 10 ML, POT... IV SCH ×9 (08:25→11:00)
[2016-12-18 08:42] LABS: AMYLASE 47 Units/L (25-115); LIPASE 102 Units/L (73-393)
[2016-12-18] MEDS ORDERED: D5W 1000 ML IV 1,000 ML IV SCH (09:00)
[2016-12-18] MEDS: ROCEPHIN VIAL 1 GM 1 GM in NS 50 ML IV + SPIKE MINIBAG* 50 ML IV SCH (09:16)
[2016-12-18] MEDS ORDERED: ISOPTO ATROPINE SL PRN (10:40)
[2016-12-18] MEDS ORDERED: PHARMACY CONSULT - DOSE _____ XX SCH (11:00)
--- NOTE | 2016-12-18 11:26 | RAD ---
HISTORY: Shortness of breath Study: Chest one view Comparison: December 16, 2016 Findings: The heart is enlarged. The more are prominent and indistinct. There appears to be diffuse interstiti al and some alveolar edema present. This is not significantly changed from the prior examination and is likely superimposed on more chronic interstitial lung disease. Accompanying infection or ARDS ca nnot be excluded as both entities can have this appearance. The bony thorax is unremarkable with the exception of chronic rotator cuff disease on the right. A right pleural effusion is likely present. IMPRESSION: No significant change from the prior examination Reported By:
[2016-12-18] MEDS: HALDOL INJ IM PRN ×2 (11:46→15:54)
[2016-12-18 12:14] LABS: BILIRUBIN,URINE NEGATIVE (NEGATIVE); BLOOD/HEMOGLOBIN,URINE 5+ (NEGATIVE); GLUCOSE, URINE NEGATIVE (NEGATIVE); KETONES,URINE NEGATIVE (NEGATIVE); LEUKOCYTE ESTERASE ,URINE 2+ (NEGATIVE); NITRITES,URINE NEGATIVE (NEGATIVE); PROTEIN,URINE 2+ (NEGATIVE); UROBILINOGEN,URINE NORMAL (NORMAL)
[2016-12-18 12:26] LABS: APPEARANCE,URINE CLEAR (CLEAR); COLOR,URINE YELLOW (YELLOW); RBC,URINE 50-60 /HPF (NEGATIVE); SQUAMOUS EPITHELIAL CELL,UR NEGATIVE /HPF (NEGATIVE)
[2016-12-18 12:27] LABS: BACTERIA,URINE NEGATIVE /HPF (NEGATIVE); HYALINE CASTS, URINE FEW /LPF (NEGATIVE)
[2016-12-18] MEDS: MORPHINE SULFATE INJ 4 MG IVP PRN (14:02)
[2016-12-18 17:13] VITALS: BP 130/66
--- NOTE | 2017-01-06 22:51 | PCM.PROG ---
Progress Note - Progress Note for Day of Date: 12/13/16 - Subjective Subjective: 86 yo WM found by neighbor in floor for prolonged period of time. Patient will respond to physical stimulus. - Past Medical Family Social History Past Med/Fam/Surg Hx: No changes since H&P Allergies: Allergies No Known Drug Allergy Allergy (Verified 12/12/16 13:42) - Review of Systems ROS: No change since H&P - Vital Signs and I&O's Vital Signs: Temperature 98.2 F Pulse Rate [Right Popliteal] 83 Pulse Rate [Right Brachial] 83 Pulse Rate [Left Brachial] 71 Pulse Rate 82 Respiratory Rate 14 Blood Pressure [Right Arm] 126/61 Blood Pressure [Right Calf] 130/66 O2 Sat by Pulse Oximetry 93 - Physical Exam Oriented: Unable to test Eyes: Normal Ear: Normal Nose: Normal Throat: Dry Respiratory: Diminished, Rhonchi Cardiovascular: Tachycardia : Other (incontinent) Auscultation: Bowel Sounds: Normal Tenderness: Other (UNABLE TO TEST) Skin: Decreased Turgur, Ecchymosis Musculoskeletal: Motor Deficit (DIFFUSE WEAKNESS) Psychiatric: Other (unresponsive) Speech Pattern: Aphasic - Laboratory and Diagnostics Result Diagrams: 12/18/16 04:45 12/18/16 04:45 Labs: 12/18/16 09:20 Blood Blood Culture - Final 12/18/16 09:10 Blood Blood Culture - Final 12/16/16 11:05 Sputum - Expectorated Sputum Sputum Culture - Final Staphylococcus Aureus 12/16/16 11:05 Sputum - Expectorated Sputum - Final Laboratory WBC 10.7 X10^3/uL (3.6-10.0) H 12/18/16 04:45 RBC 3.89 X10^6/uL (4.7-6.0) L 12/18/16 04:45 Hgb 11.0 g/dL (13.5-18.0) L 12/18/16 04:45 Hct 34.1 % (42.0-54.0) L 12/18/16 04:45 MCV 87.7 fL (80.0-100.0) 12/18/16 04:45 MCH 28.2 pg (27.0-34.0) 12/18/16 04:45 MCHC 32.1 g/dL (33.0-35.0) L 12/18/16 04:45 RDW 16.7 % (11.6-16.5) H 12/18/16 04:45 Plt Count 89 X10^3/uL (150.0-450.0) L 12/18/16 04:45 Plt Count Comment Decreased (ADEQUATE) 12/18/16 04:45 MPV 9.0 fL (7.4-11.0) 12/18/16 04:45 Neut % 93.6 % (42.0-75.0) H 12/18/16 04:45 Lymph % 3.4 % (21.0-51.0) L 12/18/16 04:45 [place] % 2.9 % (0.0-13.0) 12/18/16 04:45 Eos % 0.1 % (0.9-2.9) L 12/18/16 04:45 Baso % 0 % (0.2-1.0) L 12/18/16 04:45 Neut # 10.0 x10^3/uL (2.2-4.8) H 12/18/16 04:45 Lymph # 0.4 X10^3/uL (1.3-2.9) L 12/18/16 04:45 [place] # 0.3 x10^3/uL (0.3-0.8) 12/18/16 04:45 Eos # 0.0 x10^3/uL (0.0-0.2) 12/18/16 04:45 Baso # 0.0 X10^3/uL (0.0-0.1) 12/18/16 04:45 Absolute Nucleated RBC 0.3 /100WBC 12/18/16 04:45 Total Counted 100 12/18/16 04:45 Neutrophils % (Manual) 91 % (39-76) H 12/18/16 04:45 Band Neutrophils % 3 % (0-10) 12/15/16 05:15 Lymphocytes % (Manual) 8 % (13-43) L 12/18/16 04:45 Monocytes % (Manual) 1 % (4-9) L 12/18/16 04:45 Plt Morphology Comment Normal (NORMAL) 12/18/16 04:45 RBC Morphology Abnormal (NORMAL) 12/18/16 04:45 Anisocytosis Trace 12/15/16 05:15 Crenated Cell Slight A 12/18/16 04:45 INR Target Range - 12/12/16 14:45 INR 1.23 (0.8-1.3) 12/12/16 14:45 Sodium 157 mmol/L (136-145) H* 12/18/16 04:45 Corrected Sodium 159 mmol/L (136-145) H 12/18/16 04:45 Potassium 3.1 mmol/L (3.5-5.1) L 12/18/16 04:45 Chloride 121 mmol/L (98-107) H* 12/18/16 04:45 Carbon Dioxide 24.5 mmol/L (21-32) 12/18/16 04:45 BUN 92 mg/dL (7-18) H 12/18/16 04:45 Creatinine 2.70 mg/dL (0.70-1.30) H 12/18/16 04:45 Est GFR (MDRD) Af Amer 29 (>60) L 12/18/16 04:45 Est GFR (MDRD) Non-Af 24 (>60) L 12/18/16 04:45 Glucose 164 mg/dL (65-99) H 12/18/16 04:45 Calcium 8.3 mg/dL (8.5-10.1) L 12/18/16 04:45 Corrected Calcium 10.0 mg/dL (8.5-10.1) 12/18/16 04:45 Total Bilirubin 0.70 mg/dL (0.2-1.0) 12/18/16 04:45 AST 48 Units/L (15-37) H 12/18/16 04:45 ALT 44 Units/L (12-78) 12/18/16 04:45 Alkaline Phosphatase 71 Units/L (46-116) 12/18/16 04:45 Ammonia 15 umol/L (11-32) 12/14/16 13:30 Creatine Kinase 314 Units/L (39-308) H 12/12/16 14:45 CK-MB (CK-2) 14.5 ng/mL (0-4.0) H* 12/12/16 14:45 CK/CKMB % Calc 4.6 % (<4) 12/12/16 14:45 Troponin I 0.22 ng/mL (0-1.5) 12/12/16 14:45 C-Reactive Protein 46.60 mg/L (0-3.0) H 12/12/16 14:45 Total Protein 5.6 g/dL (6.4-8.2) L 12/18/16 04:45 Albumin 1.9 g/dL (3.4-5.0) L 12/18/16 04:45 Globulin 3.7 g/dL (2.5-4.5) 12/18/16 04:45 Albumin/Globulin Ratio 0.5 Ratio (1.1-2.1) L 12/18/16 04:45 Amylase 47 Units/L (25-115) 12/18/16 04:45 Lipase 102 Units/L (73-393) 12/18/16 04:45 Carcinoembryonic Ag 6.6 ng/mL (0.0-3.0) H 12/15/16 05:15 Total PSA 16.15 ng/mL (0.13-4.0) H 12/16/16 03:41 Specimen Type Clean catch urine 12/18/16 11:12 Urine Color Yellow (YELLOW) 12/18/16 11:12 Urine Appearance Clear (CLEAR) 12/18/16 11:12 Urine pH 5.0 (5.0 - 8.0) 12/18/16 11:12 Ur Specific [place] 1.010 (1.000-1.030) 12/18/16 11:12 Urine Protein 2+ (NEGATIVE) 12/18/16 11:12 Urine Glucose (UA) Negative (NEGATIVE) 12/18/16 11:12 Urine Ketones Negative (NEGATIVE) 12/18/16 11:12 Urine Occult Blood 5+ (NEGATIVE) 12/18/16 11:12 Urine Nitrite Negative (NEGATIVE) 12/18/16 11:12 Urine Bilirubin Negative (NEGATIVE) 12/18/16 11:12 Urine Urobilinogen Normal (NORMAL) 12/18/16 11:12 Ur Leukocyte Esterase 2+ (NEGATIVE) 12/18/16 11:12 Urine RBC 50-60 /HPF (NEGATIVE) 12/18/16 11:12 Urine WBC 0-5 /HPF (NEGATIVE) 12/18/16 11:12 Ur Squamous Epith Cells Negative /HPF (NEGATIVE) 12/18/16 11:12 Amorphous Sediment Trace /HPF (NEGATIVE) 12/12/16 16:54 Urine Bacteria Negative /HPF (NEGATIVE) 12/18/16 11:12 Hyaline Casts Few /LPF (NEGATIVE) 12/18/16 11:12 Ur Culture Indicated? No/not indicated 12/18/16 11:12 - Plan (1) UTI (urinary tract infection) Status: Acute Qualifiers: Urinary tract infection type: U Hematuria presence: H Indwelling urinary catheter type: I Encounter type: E (2) Pleural effusion Status: Acute (3) Altered mental state Status: Acute Qualifiers: Altered mental status type: A Coma depth: C Coma timing: C Plan: continue current medication, supportive care. family/caregiver requesting hospice, pt is DNR, increased lethardy, ams. repeat am labs, bp and cardiac monitoring (4) Prostate hypertrophy Status: Acute (5) Renal failure Status: Acute Qualifiers: Renal failure chronicity: R Acute renal failure type: A Chronic kidney disease stage: C Plan: iv hydration, gentle repeat am cmp
--- NOTE | 2017-01-06 22:53 | PCM.PROG ---
Progress Note - Progress Note for Day of Date: 12/15/16 - Subjective Subjective: 86 yo WM found by neighbor in floor for prolonged period of time. Patient will respond minimally to physical stimulus. - Past Medical Family Social History Past Med/Fam/Surg Hx: No changes since H&P Allergies: Allergies No Known Drug Allergy Allergy (Verified 12/12/16 13:42) - Review of Systems ROS: No change since H&P - Vital Signs and I&O's Vital Signs: Temperature 98.2 F Pulse Rate [Right Popliteal] 83 Pulse Rate [Right Brachial] 83 Pulse Rate [Left Brachial] 71 Pulse Rate 82 Respiratory Rate 14 Blood Pressure [Right Arm] 126/61 Blood Pressure [Right Calf] 130/66 O2 Sat by Pulse Oximetry 93 - Physical Exam Oriented: Unable to test Eyes: Normal Ear: Normal Nose: Normal Throat: Dry Respiratory: Diminished, Rhonchi Cardiovascular: Tachycardia : Other (incontinent) Auscultation: Bowel Sounds: Normal Tenderness: Other (UNABLE TO TEST) Skin: Decreased Turgur, Ecchymosis Musculoskeletal: Motor Deficit (DIFFUSE WEAKNESS) Psychiatric: Other (unresponsive) Mood Description: Flat Affect: Flat Speech Pattern: Aphasic - Laboratory and Diagnostics Result Diagrams: 12/18/16 04:45 12/18/16 04:45 Labs: 12/18/16 09:20 Blood Blood Culture - Final 12/18/16 09:10 Blood Blood Culture - Final 12/16/16 11:05 Sputum - Expectorated Sputum Sputum Culture - Final Staphylococcus Aureus 12/16/16 11:05 Sputum - Expectorated Sputum - Final Laboratory WBC 10.7 X10^3/uL (3.6-10.0) H 12/18/16 04:45 RBC 3.89 X10^6/uL (4.7-6.0) L 12/18/16 04:45 Hgb 11.0 g/dL (13.5-18.0) L 12/18/16 04:45 Hct 34.1 % (42.0-54.0) L 12/18/16 04:45 MCV 87.7 fL (80.0-100.0) 12/18/16 04:45 MCH 28.2 pg (27.0-34.0) 12/18/16 04:45 MCHC 32.1 g/dL (33.0-35.0) L 12/18/16 04:45 RDW 16.7 % (11.6-16.5) H 12/18/16 04:45 Plt Count 89 X10^3/uL (150.0-450.0) L 12/18/16 04:45 Plt Count Comment Decreased (ADEQUATE) 12/18/16 04:45 MPV 9.0 fL (7.4-11.0) 12/18/16 04:45 Neut % 93.6 % (42.0-75.0) H 12/18/16 04:45 Lymph % 3.4 % (21.0-51.0) L 12/18/16 04:45 [place] % 2.9 % (0.0-13.0) 12/18/16 04:45 Eos % 0.1 % (0.9-2.9) L 12/18/16 04:45 Baso % 0 % (0.2-1.0) L 12/18/16 04:45 Neut # 10.0 x10^3/uL (2.2-4.8) H 12/18/16 04:45 Lymph # 0.4 X10^3/uL (1.3-2.9) L 12/18/16 04:45 [place] # 0.3 x10^3/uL (0.3-0.8) 12/18/16 04:45 Eos # 0.0 x10^3/uL (0.0-0.2) 12/18/16 04:45 Baso # 0.0 X10^3/uL (0.0-0.1) 12/18/16 04:45 Absolute Nucleated RBC 0.3 /100WBC 12/18/16 04:45 Total Counted 100 12/18/16 04:45 Neutrophils % (Manual) 91 % (39-76) H 12/18/16 04:45 Band Neutrophils % 3 % (0-10) 12/15/16 05:15 Lymphocytes % (Manual) 8 % (13-43) L 12/18/16 04:45 Monocytes % (Manual) 1 % (4-9) L 12/18/16 04:45 Plt Morphology Comment Normal (NORMAL) 12/18/16 04:45 RBC Morphology Abnormal (NORMAL) 12/18/16 04:45 Anisocytosis Trace 12/15/16 05:15 Crenated Cell Slight A 12/18/16 04:45 INR Target Range - 12/12/16 14:45 INR 1.23 (0.8-1.3) 12/12/16 14:45 Sodium 157 mmol/L (136-145) H* 12/18/16 04:45 Corrected Sodium 159 mmol/L (136-145) H 12/18/16 04:45 Potassium 3.1 mmol/L (3.5-5.1) L 12/18/16 04:45 Chloride 121 mmol/L (98-107) H* 12/18/16 04:45 Carbon Dioxide 24.5 mmol/L (21-32) 12/18/16 04:45 BUN 92 mg/dL (7-18) H 12/18/16 04:45 Creatinine 2.70 mg/dL (0.70-1.30) H 12/18/16 04:45 Est GFR (MDRD) Af Amer 29 (>60) L 12/18/16 04:45 Est GFR (MDRD) Non-Af 24 (>60) L 12/18/16 04:45 Glucose 164 mg/dL (65-99) H 12/18/16 04:45 Calcium 8.3 mg/dL (8.5-10.1) L 12/18/16 04:45 Corrected Calcium 10.0 mg/dL (8.5-10.1) 12/18/16 04:45 Total Bilirubin 0.70 mg/dL (0.2-1.0) 12/18/16 04:45 AST 48 Units/L (15-37) H 12/18/16 04:45 ALT 44 Units/L (12-78) 12/18/16 04:45 Alkaline Phosphatase 71 Units/L (46-116) 12/18/16 04:45 Ammonia 15 umol/L (11-32) 12/14/16 13:30 Creatine Kinase 314 Units/L (39-308) H 12/12/16 14:45 CK-MB (CK-2) 14.5 ng/mL (0-4.0) H* 12/12/16 14:45 CK/CKMB % Calc 4.6 % (<4) 12/12/16 14:45 Troponin I 0.22 ng/mL (0-1.5) 12/12/16 14:45 C-Reactive Protein 46.60 mg/L (0-3.0) H 12/12/16 14:45 Total Protein 5.6 g/dL (6.4-8.2) L 12/18/16 04:45 Albumin 1.9 g/dL (3.4-5.0) L 12/18/16 04:45 Globulin 3.7 g/dL (2.5-4.5) 12/18/16 04:45 Albumin/Globulin Ratio 0.5 Ratio (1.1-2.1) L 12/18/16 04:45 Amylase 47 Units/L (25-115) 12/18/16 04:45 Lipase 102 Units/L (73-393) 12/18/16 04:45 Carcinoembryonic Ag 6.6 ng/mL (0.0-3.0) H 12/15/16 05:15 Total PSA 16.15 ng/mL (0.13-4.0) H 12/16/16 03:41 Specimen Type Clean catch urine 12/18/16 11:12 Urine Color Yellow (YELLOW) 12/18/16 11:12 Urine Appearance Clear (CLEAR) 12/18/16 11:12 Urine pH 5.0 (5.0 - 8.0) 12/18/16 11:12 Ur Specific [place] 1.010 (1.000-1.030) 12/18/16 11:12 Urine Protein 2+ (NEGATIVE) 12/18/16 11:12 Urine Glucose (UA) Negative (NEGATIVE) 12/18/16 11:12 Urine Ketones Negative (NEGATIVE) 12/18/16 11:12 Urine Occult Blood 5+ (NEGATIVE) 12/18/16 11:12 Urine Nitrite Negative (NEGATIVE) 12/18/16 11:12 Urine Bilirubin Negative (NEGATIVE) 12/18/16 11:12 Urine Urobilinogen Normal (NORMAL) 12/18/16 11:12 Ur Leukocyte Esterase 2+ (NEGATIVE) 12/18/16 11:12 Urine RBC 50-60 /HPF (NEGATIVE) 12/18/16 11:12 Urine WBC 0-5 /HPF (NEGATIVE) 12/18/16 11:12 Ur Squamous Epith Cells Negative /HPF (NEGATIVE) 12/18/16 11:12 Amorphous Sediment Trace /HPF (NEGATIVE) 12/12/16 16:54 Urine Bacteria Negative /HPF (NEGATIVE) 12/18/16 11:12 Hyaline Casts Few /LPF (NEGATIVE) 12/18/16 11:12 Ur Culture Indicated? No/not indicated 12/18/16 11:12 - Plan (1) UTI (urinary tract infection) Status: Acute Qualifiers: Urinary tract infection type: U Hematuria presence: H Indwelling urinary catheter type: I Encounter type: E Plan: IV antibiotics. (2) Pleural effusion Status: Acute Plan: Monitor output (3) Altered mental state Status: Acute Qualifiers: Altered mental status type: A Coma depth: C Coma timing: C Plan: continue current medication, supportive care. family/caregiver requesting hospice, pt is DNR, increased lethardy, ams. repeat am labs, bp and cardiac monitoring (4) Prostate hypertrophy Status: Acute (5) Renal failure Status: Acute Qualifiers: Renal failure chronicity: R Acute renal failure type: A Chronic kidney disease stage: C Plan: iv hydration, gentle repeat am cmp
--- NOTE | 2017-01-06 22:57 | PCM.DCPLAN ---
Discharge Summary - Admission Date Date of Admission: 12/12/16 - Discharge Date Discharge Date: 12/18/16 - Admission Diagnoses (1) UTI (urinary tract infection) Status: Acute (2) Pleural effusion Status: Acute (3) Altered mental state Status: Acute (4) Prostate hypertrophy Status: Acute (5) Renal failure Status: Acute - Discharge Diagnoses Discharge Diagnosis: SAME ADMISSION DIAGNOSIS - Discharge Medications Discharge Medications: NK [NK] 12/12/16 [History] - Hospital Course Vital Signs: Temperature 98.2 F Pulse Rate [Right Popliteal] 83 Pulse Rate [Right Brachial] 83 Pulse Rate [Left Brachial] 71 Pulse Rate 82 Respiratory Rate 14 Blood Pressure [Right Arm] 126/61 Blood Pressure [Right Calf] 130/66 O2 Sat by Pulse Oximetry 93 Latest Lab Results: Laboratory Last Values WBC 10.7 X10^3/uL (3.6-10.0) H 12/18/16 04:45 RBC 3.89 X10^6/uL (4.7-6.0) L 12/18/16 04:45 Hgb 11.0 g/dL (13.5-18.0) L 12/18/16 04:45 Hct 34.1 % (42.0-54.0) L 12/18/16 04:45 MCV 87.7 fL (80.0-100.0) 12/18/16 04:45 MCH 28.2 pg (27.0-34.0) 12/18/16 04:45 MCHC 32.1 g/dL (33.0-35.0) L 12/18/16 04:45 RDW 16.7 % (11.6-16.5) H 12/18/16 04:45 Plt Count 89 X10^3/uL (150.0-450.0) L 12/18/16 04:45 Plt Count Comment Decreased (ADEQUATE) 12/18/16 04:45 MPV 9.0 fL (7.4-11.0) 12/18/16 04:45 Neut % 93.6 % (42.0-75.0) H 12/18/16 04:45 Lymph % 3.4 % (21.0-51.0) L 12/18/16 04:45 [place] % 2.9 % (0.0-13.0) 12/18/16 04:45 Eos % 0.1 % (0.9-2.9) L 12/18/16 04:45 Baso % 0 % (0.2-1.0) L 12/18/16 04:45 Neut # 10.0 x10^3/uL (2.2-4.8) H 12/18/16 04:45 Lymph # 0.4 X10^3/uL (1.3-2.9) L 12/18/16 04:45 [place] # 0.3 x10^3/uL (0.3-0.8) 12/18/16 04:45 Eos # 0.0 x10^3/uL (0.0-0.2) 12/18/16 04:45 Baso # 0.0 X10^3/uL (0.0-0.1) 12/18/16 04:45 Absolute Nucleated RBC 0.3 /100WBC 12/18/16 04:45 Total Counted 100 12/18/16 04:45 Neutrophils % (Manual) 91 % (39-76) H 12/18/16 04:45 Band Neutrophils % 3 % (0-10) 12/15/16 05:15 Lymphocytes % (Manual) 8 % (13-43) L 12/18/16 04:45 Monocytes % (Manual) 1 % (4-9) L 12/18/16 04:45 Plt Morphology Comment Normal (NORMAL) 12/18/16 04:45 RBC Morphology Abnormal (NORMAL) 12/18/16 04:45 Anisocytosis Trace 12/15/16 05:15 Crenated Cell Slight A 12/18/16 04:45 INR Target Range - 12/12/16 14:45 INR 1.23 (0.8-1.3) 12/12/16 14:45 Sodium 157 mmol/L (136-145) H* 12/18/16 04:45 Corrected Sodium 159 mmol/L (136-145) H 12/18/16 04:45 Potassium 3.1 mmol/L (3.5-5.1) L 12/18/16 04:45 Chloride 121 mmol/L (98-107) H* 12/18/16 04:45 Carbon Dioxide 24.5 mmol/L (21-32) 12/18/16 04:45 BUN 92 mg/dL (7-18) H 12/18/16 04:45 Creatinine 2.70 mg/dL (0.70-1.30) H 12/18/16 04:45 Est GFR (MDRD) Af Amer 29 (>60) L 12/18/16 04:45 Est GFR (MDRD) Non-Af 24 (>60) L 12/18/16 04:45 Glucose 164 mg/dL (65-99) H 12/18/16 04:45 Calcium 8.3 mg/dL (8.5-10.1) L 12/18/16 04:45 Corrected Calcium 10.0 mg/dL (8.5-10.1) 12/18/16 04:45 Total Bilirubin 0.70 mg/dL (0.2-1.0) 12/18/16 04:45 AST 48 Units/L (15-37) H 12/18/16 04:45 ALT 44 Units/L (12-78) 12/18/16 04:45 Alkaline Phosphatase 71 Units/L (46-116) 12/18/16 04:45 Ammonia 15 umol/L (11-32) 12/14/16 13:30 Creatine Kinase 314 Units/L (39-308) H 12/12/16 14:45 CK-MB (CK-2) 14.5 ng/mL (0-4.0) H* 12/12/16 14:45 CK/CKMB % Calc 4.6 % (<4) 12/12/16 14:45 Troponin I 0.22 ng/mL (0-1.5) 12/12/16 14:45 C-Reactive Protein 46.60 mg/L (0-3.0) H 12/12/16 14:45 Total Protein 5.6 g/dL (6.4-8.2) L 12/18/16 04:45 Albumin 1.9 g/dL (3.4-5.0) L 12/18/16 04:45 Globulin 3.7 g/dL (2.5-4.5) 12/18/16 04:45 Albumin/Globulin Ratio 0.5 Ratio (1.1-2.1) L 12/18/16 04:45 Amylase 47 Units/L (25-115) 12/18/16 04:45 Lipase 102 Units/L (73-393) 12/18/16 04:45 Carcinoembryonic Ag 6.6 ng/mL (0.0-3.0) H 12/15/16 05:15 Total PSA 16.15 ng/mL (0.13-4.0) H 12/16/16 03:41 Specimen Type Clean catch urine 12/18/16 11:12 Urine Color Yellow (YELLOW) 12/18/16 11:12 Urine Appearance Clear (CLEAR) 12/18/16 11:12 Urine pH 5.0 (5.0 - 8.0) 12/18/16 11:12 Ur Specific [place] 1.010 (1.000-1.030) 12/18/16 11:12 Urine Protein 2+ (NEGATIVE) 12/18/16 11:12 Urine Glucose (UA) Negative (NEGATIVE) 12/18/16 11:12 Urine Ketones Negative (NEGATIVE) 12/18/16 11:12 Urine Occult Blood 5+ (NEGATIVE) 12/18/16 11:12 Urine Nitrite Negative (NEGATIVE) 12/18/16 11:12 Urine Bilirubin Negative (NEGATIVE) 12/18/16 11:12 Urine Urobilinogen Normal (NORMAL) 12/18/16 11:12 Ur Leukocyte Esterase 2+ (NEGATIVE) 12/18/16 11:12 Urine RBC 50-60 /HPF (NEGATIVE) 12/18/16 11:12 Urine WBC 0-5 /HPF (NEGATIVE) 12/18/16 11:12 Ur Squamous Epith Cells Negative /HPF (NEGATIVE) 12/18/16 11:12 Amorphous Sediment Trace /HPF (NEGATIVE) 12/12/16 16:54 Urine Bacteria Negative /HPF (NEGATIVE) 12/18/16 11:12 Hyaline Casts Few /LPF (NEGATIVE) 12/18/16 11:12 Ur Culture Indicated? No/not indicated 12/18/16 11:12 Hospital Course: THE PATIENT IS AN 86 YO MALE WHO WAS ADMITTED TO [facility] AFTER NEIGHBORS FOUND THE PATIENT IN THE FLOOR AFTER A FALL FOR A PROLONGED AMOUNT OF TIME. THE PATIENT IS MINIMALLY RESPONSIVE. FOUND TO HAVE UTI. PATIENT WAS GIVEN IV HYDRATION AND ANTIBIOTICS WITH MINIMAL IMPROVEMENT. THE PATIENT WAS MADE A DNR. HOSPICE WAS CONSULTED AND THE PATIENT WAS ADMITTED INTO [facility]. - Discharge Plan Disposition: [facility] TO HOSPICE MED FACILT Condition: Stable - Follow ups/Referrals Follow ups/Referrals: NFD,None [Primary Care Provider] - 3 days - Instructions Instructions: Benign Prostatic Hypertrophy
== END 2016-12-18 16:30 | disposition hospice, inpatient (51) | DRG 699 ==
LOC: ER 13:49 → OBS 17:30 → MED/SURG 22:40
PROVIDERS: ADMIT Internal Medicine; ATTEND Internal Medicine
DX: N32.0 Bladder-neck obstruction (principal); J90 Pleural effusion, not elsewhere classified; N39.0 Urinary tract infection, site not specified; N13.39 Other hydronephrosis; N17.8 Other acute kidney failure; N40.0 Benign prostatic hyperplasia without lower urinary tract symptoms; R41.82 Altered mental status, unspecified; W18.39XA Other fall on same level, initial encounter; Z91.81 History of falling; Y92.098 Other place in other non-institutional residence as the place of occurrence of the external cause; Z66 Do not resuscitate; B95.62 Methicillin resistant Staphylococcus aureus infection as the cause of diseases classified elsewhere; L89.152 Pressure ulcer of sacral region, stage 2; R25.8 Other abnormal involuntary movements; S31.010A Laceration without foreign body of lower back and pelvis without penetration into retroperitoneum, initial encounter; S71.111A Laceration without foreign body, right thigh, initial encounter; S41.112A Laceration without foreign body of left upper arm, initial encounter; S41.111A Laceration without foreign body of right upper arm, initial encounter; S41.011A Laceration without foreign body of right shoulder, initial encounter; S61.412A Laceration without foreign body of left hand, initial encounter
CPT/HCPCS: 36415; 51702; 70450; 71010; 71111; 71250; 73030; 74176; 80053; 81001; 82140; 82150; 82378; 82550; 82553; 83690; 84153; 84484; 85025; 85610; 86140; 87040; 87070; 87077; 87086; 87186; 87205; 93306; 94640; 94760; 96365; 96367; 96372; 96374; 96375; 97535; 99284; A4216; A4222; B4189; J0696; J0744; J1200; J1630; J1815; J1940; J2270; J3480; J3486; J3490; J7120; J7620

== ENCOUNTER 2016-12-18 16:30 | Inpatient (IN) | payer OTHER ==
[2016-12-18] MEDS ORDERED: HALDOL INJ IM PRN (17:49)
[2016-12-18] MEDS ORDERED: LEVSIN ORAL DROPS PO PRN (17:52)
[2016-12-18 18:51] VITALS: BMI 19.0
[2016-12-18] MEDS: MORPHINE SULFATE INJ 4 MG IVP PRN (19:44)
[2016-12-18] MEDS: ATIVAN INJ 2 MG VIAL IVP PRN (19:48)
[2016-12-18] MEDS: DILAUDID INJ IVP PRN (22:00)
[2016-12-19] MEDS: ATIVAN INJ 2 MG VIAL IVP PRN ×4 (00:17→17:09)
[2016-12-19] MEDS: MORPHINE SULFATE INJ 4 MG IVP PRN ×4 (00:18→17:09)
[2016-12-19] MEDS: D5W 1000 ML IV 1,000 ML IV SCH (06:05)
[2016-12-19] MEDS: DILAUDID INJ IVP PRN ×3 (08:18→21:44)
[2016-12-20] MEDS: D5W 1000 ML IV 1,000 ML IV SCH ×4 (01:59→22:57)
[2016-12-20] MEDS: MORPHINE SULFATE INJ 4 MG IVP PRN ×3 (09:47→23:38)
[2016-12-21] MEDS: MORPHINE SULFATE INJ 4 MG IVP PRN ×2 (08:48→21:35)
[2016-12-21] MEDS ORDERED: STERILE WATER IRRIGATION IR ONE (11:00)
[2016-12-21] MEDS: ATIVAN INJ 2 MG VIAL IVP PRN (11:06)
[2016-12-21] MEDS: D5W 1000 ML IV 1,000 ML IV SCH (11:06)
[2016-12-22] MEDS: D5W 1000 ML IV 1,000 ML IV SCH (00:51)
[2016-12-22] MEDS: MORPHINE SULFATE INJ 4 MG IVP PRN (08:11)
[2016-12-23] MEDS: MORPHINE SULFATE INJ 4 MG IVP PRN (08:58)
[2016-12-23] MEDS: ROXANOL ORAL SOLN 20MG UDC PO PRN (17:09)
[2016-12-24] MEDS: ROXANOL ORAL SOLN 20MG UDC PO PRN (14:29)
[2016-12-25] MEDS: ROXANOL ORAL SOLN 20MG UDC PO PRN ×2 (09:23→13:39)
[2016-12-25] MEDS: ATIVAN TAB 1 MG PO PRN ×2 (09:24→13:39)
[2016-12-25] MEDS: ATIVAN TAB 1 MG PO SCH ×2 (17:44→21:33)
[2016-12-25] MEDS: ROXANOL ORAL SOLN 20MG UDC PO SCH ×2 (17:44→21:32)
[2016-12-25 18:18] VITALS: BP 68/33
== END 2016-12-25 20:38 | DRG 292 ==
LOC: MED/SURG 16:30
PROVIDERS: ADMIT Internal Medicine; ATTEND Internal Medicine
DX: I50.9 Heart failure, unspecified (principal); Z51.5 Encounter for palliative care; N13.39 Other hydronephrosis; N39.0 Urinary tract infection, site not specified; N17.8 Other acute kidney failure; N40.0 Benign prostatic hyperplasia without lower urinary tract symptoms; R41.82 Altered mental status, unspecified; R53.1 Weakness; R63.4 Abnormal weight loss
CPT/HCPCS: A4217; A4222; J1630; J2060; J2270